=== PATIENT | male | born 1955 | race Caucasian/White ===

== ENCOUNTER 2020-09-07 04:51 | Emergency (ER) | payer MEDICARE ==
[~2020-09-07] VITALS: Ht 188 cm; Wt 85.0 kg
[2020-09-07] MEDS ORDERED: LIDOCAINE 2%,20 ML JEL.PF.APP MM ONE ×2 (05:04→05:30)
[2020-09-07 05:25] LABS: MICROSCOPIC AUTO
--- NOTE | 2020-09-07 05:28 | NUR ---
EVANS PLACED, 1000 CLEAR YELLOW URINE RETURN. PT STATES FEELING MUCH BETTER. UA COLLECTED AND SENT.
--- NOTE | 2020-09-07 06:03 | NUR ---
EVANS BAG SWITCHED TO LEG BAG. CONTINUES TO DRAIN WELL.
[2020-09-07 06:22] VITALS: BP 136/52
== END 2020-09-07 06:24 | disposition home or self-care (01) ==
LOC: ED 05:52
DX: N40.1 Benign prostatic hyperplasia with lower urinary tract symptoms (principal); R33.8 Other retention of urine
CPT/HCPCS: 51702; 81001; 99284